=== PATIENT | female | born 1990 | race Caucasian/White ===

== ENCOUNTER 2022-08-26 16:10 | Emergency (ER) | payer MEDICAID ==
[~2022-08-26] VITALS: Ht 152.4 cm; Wt 70.3 kg
[2022-08-26 16:56] LABS: BASOPHILS % 0.3 % (0.0-2.0); EOSINOPHILS % 0.5 % (0.0-5.0); HEMATOCRIT. 40.2 % (36.0-48.0); HEMOGLOBIN. 14.1 g/dL (12.0-16.0); LYMPHOCYTES % 31.1 % (20.0-50.0); MEAN CORPUSCULAR HEMOGLOBIN 34.5 pg (28.0-32.0); MEAN CORPUSCULAR VOLUME 98.2 fL (81.0-99.0); MEAN PLATELET VOLUME 8.6 fl (7.4-10.4); MONOCYTES % 7.4 % (2.0-8.0); NEUTROPHILS % 60.7 % (40.0-76.0); PLATELET 218 x1000/uL (130-400); RED CELL DISTRIBUTION WIDTH 12.5 % (11.6-14.6)
[2022-08-26 17:06] LABS: CHLORIDE 107 mEq/L (98-107)
[2022-08-26 18:50] LABS: CLARITY URINE CLEAR (CLEAR); COLOR URINE YELLOW (YELLOW); KETONES URINE NEGATIVE (NEGATIVE); LEUKOCYTE ESTERASE URINE NEGATIVE (NEGATIVE); NITRITE URINE NEGATIVE (NEGATIVE); OCCULT BLOOD URINE NEGATIVE (NEGATIVE); PH URINE 7.5 (4.5-8.0); PROTEIN URINE NEGATIVE (NEGATIVE); UROBILINOGEN URINE 0.2 E.U./dL (0.2-1.0)
[2022-08-26] MEDS ORDERED: ONDANSETRON 4MG ODT PO STA (19:16)
[2022-08-26] MEDS ORDERED: MAGNESIUM/ALUMINUM HYDROXIDE/SIMETHICONE 30ML UDC PO STA (19:16)
[2022-08-26] MEDS ORDERED: VISCOUS LIDOCAINE 2% 15 ML UDC PO STA (19:16)
[2022-08-26] MEDS ORDERED: FAMOTIDINE 20MG TABLET PO ONE (19:30)
[2022-08-26] MEDS ORDERED: MAG355OR21 MT (22:32)
[2022-08-26 22:44] VITALS: BP 125/72
== END 2022-08-26 22:47 | disposition home or self-care (01) ==
LOC: ER 16:10
DX: R10.30 Lower abdominal pain, unspecified (principal); R11.0 Nausea; Z90.49 Acquired absence of other specified parts of digestive tract
CPT/HCPCS: 36415; 74176; 80053; 81003; 81025; 82962; 83690; 85025; 99284; Q0162